=== PATIENT | female | born 1960 | race Caucasian/White ===

== ENCOUNTER 2020-01-14 21:29 | Inpatient (IN) | payer SELFPAY ==
[~2020-01-14] VITALS: Ht 152.4 cm; Wt 123.5 kg
--- NOTE | 2020-01-14 21:39 | PHYS DOC ---
Past History Past Medical History obesity, no PMH otherwise because she has not seen a doctor in over 20 yrs Past Surgical History: Hysterectomy Smoking: Cigarettes Alcohol Use: None Drug Use: None General Adult EDM: Chief Complaint: CHEST PAIN HPI: HPI: Patient is a 59 year old female who presents for evaluation of central chest pain. Symptoms occurred just prior to arrival. EMS was called and patient received nitroglycerin sublingual as well as aspirin. Chest pain improved to 4 out of 10 on arrival. She states the pain was nonradiating. No other symptoms reported including sweats, dizziness. She was mildly short of air. Patient does not have a known cardiac history but it should be noted that she has not seen a physician in more than 20 years. Risk factors include obesity. Full dose aspirin given by paramedics prior to arrival Review of Systems: Review of Systems: Constitutional: Denies fever or chills Eyes: Denies change in visual acuity HENT: Denies nasal congestion or sore throat Respiratory: Denies cough has shortness of breath, no known COVID exposure Cardiovascular: has chest pain, scant edema GI: Denies abdominal pain, nausea, vomiting, bloody stools or diarrhea : Denies dysuria Musculoskeletal: Denies back pain or joint pain Integument: Denies rash Neurologic: Denies headache, focal weakness or sensory changes Endocrine: Denies polyuria or polydipsia Lymphatic: Denies swollen glands Psychiatric: Denies depression or anxiety Heart Score: HEART Score for Chest Pain: HEART Score for Chest Pain Response (Comments) Value History Moderately Suspicious 1 ECG Normal 0 Age >45 - < 65 1 Risk Factors 1 or 2 Risk Factors 1 Troponin < Normal Limit 0 Total 3 Risk Factors: Risk Factors: DM, Current or recent (<one month) smoker, HTN, HLP, family history of CAD, obesity. Risk Scores: Score 0 - 3: 2.5% MACE over next 6 weeks - Discharge Home Score 4 - 6: 20.3% MACE over next 6 weeks - Admit for Clinical Observation Score 7 - 10: 72.7% MACE over next 6 weeks - Early Invasive Strategies Current Medications: Current Meds: Current Medications Medications (Trade) Dose Ordered Sig/Buddy Start Time Stop Time Status Last Admin Dose Admin Aspirin (Aspirin Chewable) 324 mg 1X ONCE 01/14/20 21:45 01/14/20 21:46 UNV Sodium Chloride (Normal Saline Flush) 10 ml QSHIFT PRN 6/9/20 21:45 UNV Physical Exam: PE: Constitutional: Well developed, well nourished, moderate distress. [] HENT: Normocephalic, atraumatic, bilateral external ears normal, oropharynx moist, no oral exudates, nose normal. [] Eyes: PERRL, EOMI, conjunctiva normal, no discharge. [] Neck: Normal range of motion, no tenderness, supple, no stridor. [] Cardiovascular:Heart rate regular rhythm, no murmur [] Lungs & Thorax: Bilateral breath sounds clear to auscultation [] Abdomen: Bowel sounds diminished, pt obese, soft, no tenderness, no masses. [] Skin: Warm, dry, no erythema, no rash. [] Back: No tenderness [] Extremities: No tenderness, no cyanosis, no clubbing, ROM intact,minimal edema. [] Neurologic: Alert and oriented X 3, normal motor function, normal sensory function, no focal deficits noted. [] Psychologic: Affect is anxious, judgement normal, mood normal. [] Current Patient Data: Labs: Laboratory Tests Test 01/14/20 21:40 White Blood Count 9.6 x10^3/uL Red Blood Count 5.31 x10^6/uL Hemoglobin 15.0 g/dL Hematocrit 44.8 % Mean Corpuscular Volume 84 fL Mean Corpuscular Hemoglobin 28 pg Mean Corpuscular Hemoglobin Concent 33 g/dL Red Cell Distribution Width 15.9 % Platelet Count 286 x10^3/uL Neutrophils (%) (Auto) 63 % Lymphocytes (%) (Auto) 28 % Monocytes (%) (Auto) 6 % Eosinophils (%) (Auto) 3 % Basophils (%) (Auto) 0 % Neutrophils # (Auto) 6.1 x10^3uL Lymphocytes # (Auto) 2.7 x10^3/uL Monocytes # (Auto) 0.6 x10^3/uL Eosinophils # (Auto) 0.3 x10^3/uL Basophils # (Auto) 0.0 x10^3/uL Sodium Level 136 mmol/L Potassium Level 4.1 mmol/L Chloride Level 102 mmol/L Carbon Dioxide Level 27 mmol/L Anion Gap 7 Blood Urea Nitrogen 14 mg/dL Creatinine 1.0 mg/dL Estimated GFR (Cockcroft-Gault) 57.1 BUN/Creatinine Ratio 14 Glucose Level 135 mg/dL Calcium Level 8.5 mg/dL Total Bilirubin 0.4 mg/dL Aspartate Amino Transf (AST/SGOT) 28 U/L Alanine Aminotransferase (ALT/SGPT) 28 U/L Alkaline Phosphatase 97 U/L Troponin I Quantitative < 0.017 ng/mL Total Protein 6.8 g/dL Albumin 2.9 g/dL Albumin/Globulin Ratio 0.7 Lipase 121 U/L Current Medications Medications (Trade) Dose Ordered Sig/Buddy Route PRN Reason Start Time Stop Time Status Last Admin Dose Admin Aspirin (Aspirin Chewable) 324 mg 1X ONCE PO 01/14/20 21:45 01/14/20 21:40 DC Sodium Chloride (Normal Saline Flush) 10 ml QSHIFT PRN IV AFTER MEDS AND BLOOD DRAWS 01/14/20 21:45 EKG: EKG: EKG read at 2135 showed normal sinus rhythm, rate of 75, leftward axis, unremarkable ST segment changes, not STEMI [] Radiology/Procedures: Radiology/Procedures: [place] [address] IMAGING REPORT Signed PATIENT: TRICIA YU ACCOUNT: [id number] : 1960 LOCATION: ER AGE: 59 SEX: F EXAM STATUS: REG ER ORD. PHYSICIAN: POLA BARRIOS DO REASON: chest pain PROCEDURE: PORTABLE CHEST 1V Exam: Chest one view INDICATION: Chest pain TECHNIQUE: Frontal view of the chest Comparisons: None FINDINGS: The cardiomediastinal silhouette and pulmonary vessels are within normal limits. The lung and pleural spaces are clear. IMPRESSION: No acute cardiopulmonary process. Electronically signed by: Fartun Negrete MD (01/14/2020 10:16 PM) [id number] DICTATED AND SIGNED BY: FARTUN NEGRETE MD DATE: 01/14/202215 CC: PCP,NO; POLA BARRIOS DO ~ [] Course & Med Decision Making: Course & Med Decision Making Pertinent Labs and Imaging studies reviewed. (See chart for details) [] Dragon Disclaimer: Dragon Disclaimer: This electronic medical record was generated, in whole or in part, using a voice recognition dictation system. 2222 patient currently chest pain-free. Will admit for chest pain observation. Dr. Carranza was called and agreed to accept patient for admission. Patient has risk factors including smoking and obesity. There is no reported family history. Vital signs were stable and patient did not have hypoxia or tachycardia Departure Departure: Impression: Primary Impression: Substernal precordial chest pain Additional Impression: Hyperglycemia Disposition: ADMITTED INPATIENT Admitting Physician: Kiana Carranza Condition: STABLE Justification of Admission: Justification of Admission: Justification of Admission Dx: Yes Angina: New-Onset POLA BARRIOS DO Jan 14, 2020 21:39
[2020-01-14] MEDS ORDERED: ASPIRIN CHEWABLE 81 MG TABLET. PO ONE (21:45)
[2020-01-14] MEDS ORDERED: 0.9 % SODIUM CHLORIDE 10 ML DISP.SYRIN. IV PRN (21:45)
[2020-01-14 21:59] LABS: BASO % 0 % (0-3); EOS # 0.3 x10^3/uL (0.0-0.7); EOS % 3 % (0-3); HEMATOCRIT 44.8 % (36.0-47.0); LYMPH # 2.7 x10^3/uL (1.0-4.8); LYMPH % 28 % (24-48); MEAN CORPUSCULAR HEMOGLOBIN 28 pg (25-35); MEAN CORPUSCULAR HGB CONC 33 g/dL (31-37); MEAN CORPUSCULAR VOLUME 84 fL (79-100); MONO # 0.6 x10^3/uL (0.0-1.1); MONO % 6 % (0-9); NEUT # 6.1 x10^3uL (1.8-7.7); NEUT % 63 % (31-73); PLATELET COUNT 286 x10^3/uL (140-400); RED BLOOD COUNT 5.31 x10^6/uL (3.50-5.40); RED CELL DISTRIBUTION WIDTH 15.9 % (11.5-14.5); WHITE BLOOD COUNT 9.6 x10^3/uL (4.0-11.0)
[2020-01-14 22:10] LABS: CALCIUM 8.5 mg/dL (8.5-10.1); GFR 57.1; POTASSIUM 4.1 mmol/L (3.5-5.1)
[2020-01-14 22:15] LABS: ALBUMIN 2.9 g/dL (3.4-5.0); ALBUMIN/GLOBULIN RATIO 0.7 (1.0-1.7); TOTAL BILIRUBIN 0.4 mg/dL (0.2-1.0); TOTAL PROTEIN 6.8 g/dL (6.4-8.2)
--- NOTE | 2020-01-14 22:19 | RAD ---
Exam: Chest one view INDICATION: Chest pain TECHNIQUE: Frontal view of the chest Comparisons: None FINDINGS: The cardiomediastinal silhouette and pulmonary vessels are within normal limits. The lung and pleural spaces are clear. IMPRESSION: No acute cardiopulmonary process. Electronically signed by: Fartun Thurman MD (01/14/2020 10:16 PM) [id number]
[2020-01-14] MEDS ORDERED: MORPHINE SULFATE 2 MG/ML DISP.SYRIN. IVP PRN (22:30)
[2020-01-14] MEDS ORDERED: ONDANSETRON PF 4 MG/2 ML VIAL. IVP PRN (22:30)
[2020-01-15 00:30] VITALS: BP 139/76
[2020-01-15 05:17] VITALS: BP 113/77
[2020-01-15] MEDS ORDERED: ACETAMINOPHEN 325 MG TABLET PO PRN (05:30)
--- NOTE | 2020-01-15 08:08 | HP ---
ADMIT DATE: ATTENDING PHYSICIAN: Dr. Hernandes. CHIEF COMPLAINT: Chest pain. HISTORY OF PRESENT ILLNESS: The patient is a 59-year-old female who presents to the ED with centralized chest pain, symptoms occurring just prior to arrival, nonexertional. She was at home watching TV. EMS personnel was called. She received 1 nitroglycerin sublingual as well as an aspirin. By the time she got to the ED, her pain had improved to 4/10 on arrival. The pain was nonradiating. No other recent symptoms. She was mildly short of air. She does not have a cardiac history. She has not seen a physician in more than 20 years. Risk factors include obesity and smoking history. The patient in the ED had a chest x-ray, which was nondiagnostic. EKG was nondiagnostic and first set of cardiac enzymes showed no myocardial necrosis. Because of her symptoms and her risk factors, she was admitted for observation and further evaluation. PAST MEDICAL HISTORY: Significant for hysterectomy at age of 28, this occurred 31 years ago and it was supposedly for uterine cancer, exact etiology is unclear. SOCIAL HISTORY: She smokes half a pack of cigarettes daily. She denies any alcohol use. MEDICATIONS: She is not on any current prescription medicines. ALLERGIES: She has no known drug allergies. REVIEW OF SYSTEMS: She smokes half a pack of cigarettes daily. 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 She denied any previous history of chest pain, heart disease, cardiac evaluation. She denied any palpitations, nausea, vomiting, diarrhea. All other systems reviewed and turned to be negative. There is no COVID-19 exposure. PHYSICAL EXAMINATION: GENERAL: When I saw her, this is a pleasant, middle-aged female. INITIAL VITAL SIGNS: In the ED showed a blood pressure of 139/70, pulse is 78 and regular, temperature 98.0 degrees Fahrenheit, and her oxygen saturations were 96% on room air. HEENT: Head is without trauma. Pupils are reactive. Sclerae are nonicteric. The oropharynx is clear. NECK: Supple, no bruits identified. LUNGS: Otherwise clear. CARDIOVASCULAR: Showed distant heart tones. No obvious gallops. Peripheral pulses are palpable and full. ABDOMEN: Obese, protuberant. No organomegaly. Bowel sounds were hypoactive. EXTREMITIES: Showed no cyanosis or edema. NEUROLOGIC: Focally intact. Speech is fluent. SKIN: Warm and dry without any lesions. PERTINENT LABORATORY STUDIES: The hemoglobin is 15.0 g/dL with a white count of 9600. Chemistry panel initially showed negative cardiac enzymes. Electrolytes are within normal range. Nonfasting blood sugar of 135. ASSESSMENT: 1. A 59-year-old female with atypical substernal chest pain resolved. She is pain free at this time. 2. Chronic obstructive pulmonary disease. 3. Morbid obesity. 4. History of hysterectomy for cervical cancer. 5. I do not think her chest pains are necessary cardiac at this time, but certainly she has some risk factors. PLAN: 1. Observation status in the ICU with telemetry monitoring. 2. Serial cardiac enzymes. 3. Cardiology evaluation in the morning to set up adenosine, thallium stress test. NICOLE HERNANDES MD DR: PAL/emily JOB#: [id number] / [id number]
--- NOTE | 2020-01-15 08:10 | PDOC2 ---
CARDIAC CONSULT DATE OF CONSULT Date Of Consult DATE: 01/15/20 TIME: 08:06 REASON FOR CONSULT Reason for Consult Chest pain REFERRING PHYSICIAN Referring Physician Dr. Baum SOURCE Source: Chart review, Patient HPI History of Present Illness This is a 59 female who presented secondary to chest pain. Patient reports developing stabbing pain in her central chest yesterday evening while watching television. Pain was so intense that she called EMS. No associated dizziness, diaphoresis, palpitations, shortness of breath, or nausea/vomiting. Pain improved with nitro/ASA. No further pain overnight. No significant cardiac history although reports she has not seen a provider in 20 years. PAST MEDICAL HISTORY Cardiovascular: No pertinent hx Pulmonary: No pertinent hx PAST SURGICAL HISTORY Past Surgical History: Hysterectomy FAMILY HISTORY Family History: Cancer (kidney ), Diabetes SOCIAL HISTORY Smoke: <1 pack per day ALCOHOL: none Drugs: None Lives: with Family CURRENT MEDICATIONS Current Medications Current Medications Aspirin (Aspirin Chewable) 324 mg 1X ONCE PO ; Start 01/14/20 at 21:45; Stop 01/14/20 at 21:40; Status DC Sodium Chloride (Normal Saline Flush) 10 ml QSHIFT PRN IV AFTER MEDS AND BLOOD DRAWS; Start 01/14/20 at 21:45 Ondansetron HCl (Zofran) 4 mg PRN Q4HRS PRN IVP NAUSEA/VOMITING; Start 01/14/20 at 22:30; Stop 01/15/20 at 22:29 Morphine Sulfate (Morphine 2mg Syringe) 2 mg PRN Q2HR PRN IVP PAIN; Start 01/14/20 at 22:30; Stop 01/15/20 at 22:29 Acetaminophen (Tylenol) 650 mg PRN Q4HRS PRN PO PAIN; Start 01/15/20 at 05:30 ALLERGIES Allergies: Coded Allergies: No Known Allergies (Verified Allergy, Unknown, 01/14/20) ROS Review of Systems 14 point ROS conducted with pertinent positives noted above in HPI PHYSICAL EXAM General: Alert, Oriented X3, Cooperative, No acute distress HEENT: Atraumatic, Mucous membr. moist/pink Lungs: Clear to auscultation, Normal air movement Heart: Regular rate, No murmurs Abdomen: Soft, No tenderness Extremities: No edema, Normal pulses Skin: No breakdown Neuro: Normal speech, Sensation intact Psych/Mental Status: Mental status NL, Mood NL MUSCULOSKELETAL: Osteoarthritic changes both hands VITALS Vital Signs Vital Signs Date Time Temp Pulse Resp B/P (MAP) Pulse Ox O2 Delivery O2 Flow Rate FiO2 01/15/20 08:01 Room Air 01/15/20 05:17 98.5 83 17 113/77 (89) 93 LABS LABS Laboratory Tests Test 01/14/20 21:40 01/15/20 05:15 White Blood Count 9.6 x10^3/uL (4.0-11.0) Red Blood Count 5.31 x10^6/uL (3.50-5.40) Hemoglobin 15.0 g/dL (12.0-15.5) Hematocrit 44.8 % (36.0-47.0) Mean Corpuscular Volume 84 fL (79-100) Mean Corpuscular Hemoglobin 28 pg (25-35) Mean Corpuscular Hemoglobin Concent 33 g/dL (31-37) Red Cell Distribution Width 15.9 % (11.5-14.5) Platelet Count 286 x10^3/uL (140-400) Neutrophils (%) (Auto) 63 % (31-73) Lymphocytes (%) (Auto) 28 % (24-48) Monocytes (%) (Auto) 6 % (0-9) Eosinophils (%) (Auto) 3 % (0-3) Basophils (%) (Auto) 0 % (0-3) Neutrophils # (Auto) 6.1 x10^3uL (1.8-7.7) Lymphocytes # (Auto) 2.7 x10^3/uL (1.0-4.8) Monocytes # (Auto) 0.6 x10^3/uL (0.0-1.1) Eosinophils # (Auto) 0.3 x10^3/uL (0.0-0.7) Basophils # (Auto) 0.0 x10^3/uL (0.0-0.2) Sodium Level 136 mmol/L (136-145) Potassium Level 4.1 mmol/L (3.5-5.1) Chloride Level 102 mmol/L (98-107) Carbon Dioxide Level 27 mmol/L (21-32) Anion Gap 7 (6-14) Blood Urea Nitrogen 14 mg/dL (7-20) Creatinine 1.0 mg/dL (0.6-1.0) Estimated GFR (Cockcroft-Gault) 57.1 BUN/Creatinine Ratio 14 (6-20) Glucose Level 135 mg/dL (70-99) Calcium Level 8.5 mg/dL (8.5-10.1) Total Bilirubin 0.4 mg/dL (0.2-1.0) Aspartate Amino Transf (AST/SGOT) 28 U/L (15-37) Alanine Aminotransferase (ALT/SGPT) 28 U/L (14-59) Alkaline Phosphatase 97 U/L (46-116) Troponin I Quantitative < 0.017 ng/mL (0-0.055) < 0.017 ng/mL (0-0.055) Total Protein 6.8 g/dL (6.4-8.2) Albumin 2.9 g/dL (3.4-5.0) Albumin/Globulin Ratio 0.7 (1.0-1.7) Lipase 121 U/L (73-393) ASSESSMENT/PLAN Assessment/Plan 1. Chest pain, mixed features. AMI ruled out 2. Morbid obestiy 3. Elevated glucose 4. Tobaccoism; discussed/encouraged cessation Recommendations Lipids, TSH, A1C ASA Discussed/encouraged lifestyle modification, weight loss. Echo to assess LV systolic function Consider outpatient ischemic evaluation Follow up with Dr. Gay upon discharge. Contact information provided. TROY KAPOOR APRN Jan 15, 2020 08:10
[2020-01-15] MEDS ORDERED: ASPIRIN ENTERIC COATED 81 MG TABLET.DR. PO SCH (08:30)
--- NOTE | 2020-01-15 10:07 | DS ---
DATE OF DISCHARGE: 01/15/2020 ATTENDING PHYSICIAN: Dr. Hernandes. FINAL DISCHARGE DIAGNOSES: 1. Atypical chest pain, coronary ischemia ruled out. 2. Chronic obstructive pulmonary disease. 3. Morbid obesity. 4. History of hysterectomy. 5. Atypical noncardiac chest pain. FINAL HISTORY AND PHYSICAL: This is a 59-year-old female admitted with chest pain. She is a smoker. It is nonexertional. She has some risk factors including smoking and obesity. She is not diabetic. No previous history of heart disease. PHYSICAL EXAMINATION: Please see the dictated note. PERTINENT LABORATORY AND X-RAY STUDIES: Hemoglobin maintained at 15.0 g/dL with white count of 9600. Cardiac enzymes were negative for myocardial necrosis. Electrolytes, BUN and creatinine all within normal range. Nonfasting blood sugar 135. Chest x-ray was nondiagnostic. The 12-lead EKG was nondiagnostic. COURSE IN THE HOSPITAL: The patient was admitted. She had no arrhythmias. Cardiac enzymes were serially ruled out coronary ischemia. She did have Cardiology evaluation by Tanesha Dumont of the Cardiology service next day. She had an inpatient echocardiogram done. She will organize outpatient ischemia workup. Strong encouragement to avoid further tobacco use. Whether or not she will quit smoking remains to be seen. In any event, by the next day, the patient was pain free. She was discharged home in stable condition with explicit instructions and followup care. Digital Analytics Manager will followup with the patient on outpatient. NICOLE HERNANDES MD DR: PAL/emily JOB#: [id number] / [id number]
[2020-01-15 11:12] VITALS: BP 132/68
--- NOTE | 2020-01-15 11:29 | CARD ---
MR#: [id number] Date of Study: 01/15/2020 Ordering Physician: TROY KAPOOR, Referring Physician: TROY KAPOOR, Tech: Elisabeth Ribeiro APPROVED REPORT EXAM: Two-dimensional and M-mode echocardiogram with Doppler and color Doppler. Other Information Quality : FairHR: 82bpm Technically limited study due to body habitus. INDICATION Chest Pain 2D DIMENSIONS RVDd2.4 (2.9-3.5cm)Left Atrium(2D)3.3 (1.6-4.0cm) IVSd1.4 (0.7-1.1cm)Aortic Root(2D)3.1 (2.0-3.7cm) LVDd5.8 (3.9-5.9cm)LVOT Diameter2.4 (1.8-2.4cm) PWd1.3 (0.7-1.1cm)LVDs3.4 (2.5-4.0cm) FS (%) 41.0 %SV118.1 ml Aortic Valve AoV Peak [place].160.3cm/sAoV VTI26.4cm AO Peak GR.10.3mmHgLVOT Peak [place].121.2cm/s LVOT VTI 22.48cmAO Mean GR.5mmHg ABDELRAHMAN (VMAX)3.61zg7PFQ (VTI)3.72cm2 Mitral Valve MV E Fskeheky00.1cm/sMV E Peak Gr.3mmHg MV DECEL [id number] A Zwhduavf33.3cm/s MV E Mean Gr.1mmHgE/A Ratio0.7 Pulmonary Valve PV Peak Lnmnuvft97.2cm/sPV Peak Grad.4mmHg Tricuspid Valve TR P. Vnsrrioh816br/sRAP HVJLVVND0ieBq TR Peak Gr.63kvRqIOHO43jiQz LEFT VENTRICLE The left ventricle is normal size. There is mild concentric left ventricular hypertrophy. The left ve ntricular systolic function is normal and the ejection fraction is within normal range. The Ejection Fraction is 55-60%. There is normal LV segmental wall motion. Transmitral Doppler flow pattern is Gra de I-abnormal relaxation pattern. RIGHT VENTRICLE The right ventricle is normal size. There is normal right ventricular wall thickness. The right ventr icular systolic function is normal. ATRIA The left atrium is borderline dilated. The right atrium size is normal. Interatrial septal thickening is noted. AORTIC VALVE The aortic valve is normal in structure and function. Doppler and Color Flow revealed no significant aortic regurgitation. There is no significant aortic valvular stenosis. MITRAL VALVE The mitral valve is normal in structure and function. There is no evidence of mitral valve prolapse. There is no mitral valve stenosis. Doppler and Color-flow revealed trace mitral regurgitation. TRICUSPID VALVE The tricuspid valve is normal in structure and function. Doppler and Color Flow revealed no tricuspid valve regurgitation noted with an estimated PAP of 14 mmHg. There is no tricuspid valve stenosis. PULMONIC VALVE The pulmonic valve is not well visualized. Doppler and Color Flow revealed no pulmonic valvular regur gitation. GREAT VESSELS The aortic root is normal in size. The IVC is normal in size and collapses >50% with inspiration. PERICARDIAL EFFUSION There is no evidence of significant pericardial effusion. Critical Notification Critical Value: No <Conclusion> The left ventricle is normal size. The left ventricular systolic function is normal and the ejection fraction is within normal range. The Ejection Fraction is 55-60%. There is mild concentric left ventricular hypertrophy. Doppler and Color Flow revealed no significant aortic regurgitation. There is no significant aortic valvular stenosis. Doppler and Color-flow revealed trace mitral regurgitation. Doppler and Color Flow revealed no tricuspid valve regurgitation noted with an estimated PAP of 14 m mHg. Signed by : Jerome Mcnally MD Electronically Approved : 01/15/2020 11:29:12
[2020-01-15 13:47] LABS: THYROID STIM HORMONE (TSH) 2.308 uIU/mL (0.358-3.740)
[2020-01-16 02:07] LABS: HEMOGLOBIN A1C 6.2 % (4.8-5.6)
--- NOTE | 2020-01-16 08:00 | EKG ---
[address] [address] Test Date: 2020-01-14 Test Time: 21:32:17 Pat Name: TRICIA YU Department: Room: [facility] 1 Gender: Site Engineer: : 1960 Requested By: POLA BARRIOS Order Number: [id number] Reading MD: Michael Haddad MD Measurements Intervals [place] Rate: P: [place]: QRS: QRSD: T: QT: QTc: Interpretive Statements SR Electronically Signed On 01-20-2020 13:20:07 CDT by Michael Haddad MD
== END 2020-01-15 12:56 | disposition home or self-care (01) | DRG 313 ==
LOC: ER 21:29 → EDBD 21:29 → OBSVTOIN 22:29 → ICU 22:29
PROVIDERS: ADMIT Internal Medicine; ATTEND Internal Medicine
DX: R07.89 Other chest pain (principal); Z68.43 Body mass index [BMI] 50.0-59.9, adult; F17.210 Nicotine dependence, cigarettes, uncomplicated; E66.01 Morbid (severe) obesity due to excess calories; R73.9 Hyperglycemia, unspecified; J44.9 Chronic obstructive pulmonary disease, unspecified; Z85.41 Personal history of malignant neoplasm of cervix uteri; Z90.710 Acquired absence of both cervix and uterus; Z83.3 Family history of diabetes mellitus; Z80.51 Family history of malignant neoplasm of kidney; Z71.3 Dietary counseling and surveillance; Z71.6 Tobacco abuse counseling
CPT/HCPCS: 36415; 71045; 80053; 80061; 83036; 83690; 84443; 84484; 85025; 93005; 93306; 99285-25

== ENCOUNTER 2021-01-19 00:17 | Emergency (ER) | payer SELFPAY ==
[~2021-01-19] VITALS: Ht 162.6 cm; Wt 127.9 kg
[2021-01-19] MEDS ORDERED: ONDANSETRON PF 4 MG/2 ML VIAL. IVP ONE (00:30)
[2021-01-19] MEDS ORDERED: IV RINGERS SOLUTION,LACTATED 1,000 ML IV ONE (00:30)
[2021-01-19] MEDS ORDERED: IOHEXOL 300 MG/ML 75 ML VIAL. IV ONE (00:45)
[2021-01-19] MEDS ORDERED: CONTRAST GIVEN. MC PRN (00:45)
[2021-01-19] MEDS ORDERED: METOCLOPRAMIDE HCL 10 MG/2 ML VIAL. ONE ×2 (01:06→01:24)
[2021-01-19 01:21] LABS: BASO # 0.2 x10^3/uL (0.0-0.2); BASO % 1 % (0-3); EOS # 0.2 x10^3/uL (0.0-0.7); EOS % 1 % (0-3); HEMATOCRIT 50.9 % (36.0-47.0); HEMOGLOBIN 16.8 g/dL (12.0-15.5); LYMPH # 2.4 x10^3/uL (1.0-4.8); LYMPH % 17 % (24-48); MEAN CORPUSCULAR HEMOGLOBIN 28 pg (25-35); MEAN CORPUSCULAR HGB CONC 33 g/dL (31-37); MEAN CORPUSCULAR VOLUME 84 fL (79-100); MONO # 0.7 x10^3/uL (0.0-1.1); MONO % 5 % (0-9); NEUT % 76 % (31-73); PLATELET COUNT 303 x10^3/uL (140-400); RED BLOOD COUNT 6.06 x10^6/uL (3.50-5.40); RED CELL DISTRIBUTION WIDTH 16.3 % (11.5-14.5); WHITE BLOOD COUNT 14.5 x10^3/uL (4.0-11.0)
[2021-01-19 01:26] LABS: CALCIUM 8.6 mg/dL (8.5-10.1); GFR 56.9; POTASSIUM 4.2 mmol/L (3.5-5.1)
[2021-01-19 01:32] LABS: ALBUMIN 3.1 g/dL (3.4-5.0); ALBUMIN/GLOBULIN RATIO 0.7 (1.0-1.7); TOTAL BILIRUBIN 0.7 mg/dL (0.2-1.0); TOTAL PROTEIN 7.6 g/dL (6.4-8.2)
--- NOTE | 2021-01-19 01:50 | RAD ---
CT abdomen and pelvis with contrast: Reason for examination: Severe abdominal pain with blood in stools. Helical images were obtained through the abdomen and pelvis with intravenous administration of 74 cc Omnipaque 300. Reconstruction was performed in sagittal and coronal planes. Exposure: One or more of the following individualized dose reduction techniques were utilized for thi s examination: 1. Automated exposure control 2. Adjustment of the mA and/or kV according to patient size 3. Use of iterative reconstruction technique. The lung bases are clear. The heart size is normal with no pericardial effusion. There are several small hypodense lesions in the liver which probably represent cysts or hemangioma w ith the largest measuring 3 cm in size. No abnormality seen at the spleen, adrenal glands pancreas or gallbladder. The abdominal aorta and inferior vena cava show no acute abnormalities. The appendix is not identified but there are no secondary signs of appendicitis seen. The colon shows wall thickenin g involving the descending and sigmoid colon consistent with colitis with some adjacent inflammatory changes in the mesentery. The small intestinal tract shows no abnormal dilatation, wall thickening or obstruction. No abnormality seen at the stomach or duodenum. The kidneys show no renal masses, renal calculi, hydronephrosis or evidence of obstructive uropathy. The bladder and vaginal cuff show no acute abnormalities. No free fluid or free air seen in the abdom en or pelvis. No acute bony abnormalities are seen. IMPRESSION: Small hypodense lesions consistent with cysts and hemangioma in the liver measuring up to 3 cm in siz e. Thickened wall of the descending and sigmoid colon with adjacent inflammatory changes in the mesenter y consistent with colitis. Electronically signed by: Mely Mancia MD (01/19/2021 1:48 AM) MARTINEZ
[2021-01-19] MEDS ORDERED: AMOXICILLIN/K CLAV 875/125MG TABLET. PO ONE (02:15)
[2021-01-19] MEDS ORDERED: MORPHINE SULFATE 4 MG/ML DISP.SYRIN. IV ONE (02:15)
--- NOTE | 2021-01-19 02:30 | PHYS DOC ---
Past History Past Medical History: No Pertinent History Past Surgical History: No Surgical History, Hysterectomy Smoking: Cigarettes Additional Smoking Information: 1/2 pack Alcohol Use: None Drug Use: None Adult General Chief Complaint Chief Complaint: ABDOMINAL PAIN HPI HPI Patient is a 60-year-old female who presents with a couple hours of generalized abdominal cramping and pain, 7 out of 10, dull and achy in nature with nonbloody nonbilious emesis x3 and some watery brown diarrhea. States she has been otherwise doing well but does have an acquaintance that had similar symptoms a few days ago. Denies any headaches, fevers, chest pain, shortness of breath, dysuria, hematuria or bright red blood in the stool. Denies any alcohol or drug use. Denies any recent trauma or travels. Denies any recent antibiotics. Review of Systems Review of Systems Review of systems otherwise unremarkable except noted in HPI Current Medications Current Medications Current Medications Medications (Trade) Dose Ordered Sig/Buddy Start Time Stop Time Status Last Admin Dose Admin Amoxicillin/ Clavulanate Potassium (Augmentin 875/ 125mg) 1 tab 1X ONCE 01/19/21 02:15 01/19/21 02:16 DC Info (Do NOT chart on this entry -- for MONITORING) 1 each PRN DAILY PRN 01/19/21 00:45 01/21/21 00:44 Iohexol (Omnipaque 300 Mg/ml) 75 ml 1X ONCE 01/19/21 00:45 01/19/21 00:46 DC 01/19/21 00:57 75 ML Lactated Ringer's 1,000 ml @ 1,000 mls/hr 1X ONCE 01/19/21 00:30 01/19/21 01:29 DC 01/19/21 01:22 1,000 MLS/HR Metoclopramide HCl (Reglan Vial) 10 mg STK-MED ONCE 01/19/21 01:24 01/19/21 01:24 DC Morphine Sulfate (Morphine 4mg Syringe) 4 mg 1X ONCE 01/19/21 02:15 01/19/21 02:16 DC Ondansetron HCl (Zofran) 4 mg 1X ONCE 01/19/21 00:30 01/19/21 00:31 DC 01/19/21 01:22 4 MG Allergies Allergies Allergies Coded Allergies Type Severity Reaction Last Updated Verified No Known Allergies Allergy Unknown 01/14/20 Yes Physical Exam Physical Exam Constitutional: Well developed, well nourished, no acute distress, non-toxic appearance. [] HENT: Normocephalic, atraumatic, bilateral external ears normal, oropharynx moist, no oral exudates, nose normal. [] Eyes: conjunctiva normal, no discharge. [] Neck: Normal range of motion, no tenderness, supple, no stridor. [] Cardiovascular:Heart rate regular rhythm, no murmur [] Lungs & Thorax: Bilateral breath sounds clear to auscultation [] Abdomen: Bowel sounds normal, soft, no tenderness, no masses, no pulsatile masses. [] Skin: Warm, dry, no erythema, no rash. [] Back: No tenderness, no CVA tenderness. [] Extremities: No tenderness, no cyanosis, no clubbing, ROM intact, no edema. [] Neurologic: Alert and oriented X 3, normal motor function, normal sensory function, no focal deficits noted. [] Psychologic: Affect normal, judgement normal, mood normal. [] Current Patient Data Vital Signs Vital Signs Date Time Temp Pulse Resp B/P (MAP) Pulse Ox O2 Delivery O2 Flow Rate FiO2 01/19/21 00:39 97.8 89 18 180/113 (135) 95 Room Air Lab Results Laboratory Tests Test 01/19/21 00:51 White Blood Count 14.5 x10^3/uL (4.0-11.0) H Red Blood Count 6.06 x10^6/uL (3.50-5.40) H Hemoglobin 16.8 g/dL (12.0-15.5) H Hematocrit 50.9 % (36.0-47.0) H Mean Corpuscular Volume 84 fL (79-100) Mean Corpuscular Hemoglobin 28 pg (25-35) Mean Corpuscular Hemoglobin Concent 33 g/dL (31-37) Red Cell Distribution Width 16.3 % (11.5-14.5) H Platelet Count 303 x10^3/uL (140-400) Neutrophils (%) (Auto) 76 % (31-73) H Lymphocytes (%) (Auto) 17 % (24-48) L Monocytes (%) (Auto) 5 % (0-9) Eosinophils (%) (Auto) 1 % (0-3) Basophils (%) (Auto) 1 % (0-3) Neutrophils # (Auto) 11.0 x10^3uL (1.8-7.7) H Lymphocytes # (Auto) 2.4 x10^3/uL (1.0-4.8) Monocytes # (Auto) 0.7 x10^3/uL (0.0-1.1) Eosinophils # (Auto) 0.2 x10^3/uL (0.0-0.7) Basophils # (Auto) 0.2 x10^3/uL (0.0-0.2) Sodium Level 137 mmol/L (136-145) Potassium Level 4.2 mmol/L (3.5-5.1) Chloride Level 101 mmol/L (98-107) Carbon Dioxide Level 25 mmol/L (21-32) Anion Gap 11 (6-14) Blood Urea Nitrogen 15 mg/dL (7-20) Creatinine 1.0 mg/dL (0.6-1.0) Estimated GFR (Cockcroft-Gault) 56.9 BUN/Creatinine Ratio 15 (6-20) Glucose Level 147 mg/dL (70-99) H Calcium Level 8.6 mg/dL (8.5-10.1) Total Bilirubin 0.7 mg/dL (0.2-1.0) Aspartate Amino Transferase (AST) 16 U/L (15-37) Alanine Aminotransferase (ALT) 27 U/L (14-59) Alkaline Phosphatase 110 U/L (46-116) Total Protein 7.6 g/dL (6.4-8.2) Albumin 3.1 g/dL (3.4-5.0) L Albumin/Globulin Ratio 0.7 (1.0-1.7) L Lipase 76 U/L (73-393) EKG EKG [] Radiology/Procedures Radiology/Procedures [] Heart Score C/O Chest Pain: No Risk Factors: Risk Factors: DM, Current or recent (<one month) smoker, HTN, HLP, family history of CAD, obesity. Risk Scores: Risk Factors: DM, Current or recent (<one month) smoker, HTN, HLP, family history of CAD, obesity. Course & Med Decision Making Course & Med Decision Making Patient is a 60-year-old female who presents with a couple hours of generalized abdominal cramping, discomfort, nausea, vomiting and watery diarrhea Vital signs notable for hypertension initially which improved on ED visit. Patient placed on the monitor with IV access established and IV fluid given. Given Zofran/Reglan for nausea and morphine for pain. Laboratory analysis notable for mild leukocytosis. CT notable for thickened wall of the descending and sigmoid colon consistent with colitis. Patient started on Augmentin, nausea medicine and pain medicine in the emergency depar tment. Discussed all findings with patient and recommended pain management at home. Advised on antibiotic use at home. Advised to follow-up with primary care physician to discuss ED visit and set up a follow-up visit. Gave strict return precautions to the ED. Patient very grateful, verbalized understanding and agreed with plan of discharge. [] Dragon Disclaimer Dragon Disclaimer This electronic medical record was generated, in whole or in part, using a voice recognition dictation system. Departure Departure: Impression: Primary Impression: Colitis Disposition: HOME / SELF CARE / HOMELESS Condition: GOOD Referrals: PCP,BRIDGETTE (PCP) ANA DAO MD Patient Instructions: Colitis Additional Instructions: Thank you for coming into the emergency department tonight and allowing us to take care of you. As discussed, you have some colitis which is usually infectious or inflammatory but we usually treat it with antibiotics, pain medicine and nausea medicine and adjust your diet. Please adjust your diet as discussed over the next couple of days to light and clear to allow some bowel rest. Please take your antibiotics as prescribed and until gone. Please take your pain medicine and nausea medicine as prescribed. Please call your primary care physician to update on ED visit and set up a follow-up visit. You are given resources for local primary care physicians and free clinics. Please come back to the emergency department immediately with new or concerning symptoms as discussed. Scripts Ondansetron Hcl (ZOFRAN) 4 Mg Tablet 1 TAB PO PRN Q6HRS PRN for NAUSEA for 3 Days, #12 TAB Prov: POLA WHALEY MD 01/19/21 Hydrocodone Bit/Acetaminophen (HYDROCODONE-APAP 5-325 ) 1 Each Tablet 1 TAB PO PRN Q6HRS PRN for ab pain for 3 Days, #12 TAB 0 Refills Prov: POLA WHALEY MD 01/19/21 Amoxicillin/Potassium Clav (AUGMENTIN 875-125 TABLET) 1 Each Tablet 1 TAB PO BID for colitis for 10 Days, #19 TAB 0 Refills Prov: POLA WHALEY MD 01/19/21 POLA WHALEY MD Jan 19, 2021 02:29
[2021-01-19] MEDS ORDERED: AMOX1TAB61 PO (02:41)
[2021-01-19] MEDS ORDERED: HYDR-2155 PO (02:41)
[2021-01-19] MEDS ORDERED: ONDA4TAB7 PO (02:41)
[2021-01-19 02:50] VITALS: BP 168/92
== END 2021-01-19 03:00 | disposition home or self-care (01) ==
LOC: ER 00:17
DX: K52.9 Noninfective gastroenteritis and colitis, unspecified (principal); F17.200 Nicotine dependence, unspecified, uncomplicated; Z90.710 Acquired absence of both cervix and uterus
CPT/HCPCS: 36415; 74177; 80053; 83690; 85025; 96361; 96374; 96375; 99285; J2270; J2405; J7120; Q9967